=== PATIENT | female | born 1955 | race Caucasian/White ===

== ENCOUNTER 2017-09-07 05:30 | Inpatient (IN) | payer OTHER ==
[~2017-09-07] VITALS: Ht 165.1 cm; Wt 112.9 kg
[2017-09-07] VITALS (10 sets, daily range): BP systolic 96–140; BP diastolic 39–75; PULSE 57–95; TEMP 97.4–98.4
[2017-09-07] MEDS ORDERED: LOTENSIN20 MG PO (06:43)
[2017-09-07] MEDS ORDERED: LASIX 40MG TABL40 MG PO (06:43)
[2017-09-07] MEDS ORDERED: ZYLOPRIM 100MG100 MG PO (06:44)
[2017-09-07] MEDS ORDERED: NORCO 325 MG-101 TAB PO (06:44)
[2017-09-07] MEDS ORDERED: XANAX .25M0.25 MG/TA PO (06:45)
[2017-09-07] MEDS ORDERED: MEVACOR10 MG PO (06:46)
[2017-09-07] MEDS ORDERED: MOTRIN 800800 MG/TAB PO (07:26)
[2017-09-07] MEDS ORDERED: NORCO 325 MG-51 TAB PO (07:26)
[2017-09-08 00:50] VITALS: BP 112/53; PULSE 83; TEMP 98.3
[2017-09-08 04:39] VITALS: BP 107/51; PULSE 83; TEMP 98.6
[2017-09-08 07:34] LABS: ADJUSTED CALCIUM 8.7 mg/dL (8.4-10.2); ALBUMIN 3.1 gm/dL (3.5-5.0); BILIRUBIN,TOTAL 0.5 mg/dL (0.0-1.0); POTASSIUM 3.8 mmol/L (3.4-5.0)
[2017-09-08 08:56] VITALS: BP 120/63; PULSE 72; TEMP 97.7
[2017-09-08 14:20] VITALS: BP 144/62; PULSE 73; TEMP 97.7
[2017-09-08 18:13] VITALS: BP 117/50; PULSE 80; TEMP 97.9
[2017-09-08 21:40] LABS: BASO # 0.1 (0.0-0.2); BASO % 0.6 % (0.0-2.0); EOS # 0.1 (0.0-0.7); EOS % 0.6 % (0-4.0); GRAN # 7.4 (1.4-6.5); HEMATOCRIT 31.6 % (37.0-47.0); HEMOGLOBIN 10.3 g/dl (12.5-16.0); LYMPH # 2.5 (1.2-3.4); LYMPH % 23.2 % (20.0-51.0); MEAN CELL VOLUME 84 fl (80.0-100.0); MEAN CORPUSCULAR HEMOGLOBIN 27 pg (27.0-31.0); MEAN CORPUSCULAR HGB CONC 33 g/dl (33.0-37.0); MEAN PLATELET VOLUME 11.6 fl (7.4-10.4); MONO # 0.8 (0.1-0.6); PLATELET COUNT 250 K/mm3 (130-400); RED BLOOD COUNT 3.75 M/mm3 (4.10-5.30); WHITE BLOOD COUNT 10.9 K/mm3 (4.8-10.8)
[2017-09-08 22:19] VITALS: BP 116/55; PULSE 76; TEMP 97.9
[2017-09-09 01:51] VITALS: BP 103/55; PULSE 71; TEMP 97.8
[2017-09-09 06:10] VITALS: BP 115/51; PULSE 66; TEMP 98.6
[2017-09-09 08:59] VITALS: BP 144/69; PULSE 65; TEMP 97.8
[2017-09-09 14:30] VITALS: BP 142/70; PULSE 71; TEMP 98.2
== END 2017-09-09 15:30 | disposition home or self-care (01) | DRG 743 ==
LOC: SDCO 05:30 → SURG 07:30 → EDSTATUS 07:30 → SDCO 07:30 → SURG 13:05
PROVIDERS: Obstetrics & Gynecology; Urology
PROC: 0UUG4JZ Supplement Vagina with Synthetic Substitute, Percutaneous Endoscopic Approach (ICD-10-PCS; 2017-09-07)
PROC: 8E0W4CZ Robotic Assisted Procedure of Trunk Region, Percutaneous Endoscopic Approach (ICD-10-PCS; 2017-09-07)
PROC: 0UT9FZZ Resection of Uterus, Via Natural or Artificial Opening With Percutaneous Endoscopic Assistance (ICD-10-PCS; principal; 2017-09-07 07:30)
PROC: 0UT7FZZ Resection of Bilateral Fallopian Tubes, Via Natural or Artificial Opening With Percutaneous Endoscopic Assistance (ICD-10-PCS; 2017-09-07 07:30)
PROC: 0UT2FZZ Resection of Bilateral Ovaries, Via Natural or Artificial Opening With Percutaneous Endoscopic Assistance (ICD-10-PCS; 2017-09-07 07:30)
PROC: 0UTC7ZZ Resection of Cervix, Via Natural or Artificial Opening (ICD-10-PCS; 2017-09-07 07:30)
DX: N81.3 Complete uterovaginal prolapse (principal); N39.3 Stress incontinence (female) (male); C54.1 Malignant neoplasm of endometrium; N36.42 Intrinsic sphincter deficiency (ISD); N32.81 Overactive bladder; N95.0 Postmenopausal bleeding; I10 Essential (primary) hypertension
CPT/HCPCS: OP; A4314; A4315; A9284; C1713; C1771; C1781; J0690; J1100; J1170; J1650; J1885; J2310; J2405; J2704; J2710; J3010; J7120